=== PATIENT | female | born 1980 | race Caucasian/White ===

== ENCOUNTER 2016-12-11 03:02 | Inpatient (IN) ==
[2016-12-11 03:17] LABS: URINE SOURCE VOIDED
[2016-12-11 03:31] LABS: BILIRUBIN URINE NEGATIVE (NEGATIVE); BLOOD URINE 4+ (NEGATIVE); CLARITY SL. CLOUDY (CLEAR); COLOR YELLOW; GLUCOSE URINE NEGATIVE (NEGATIVE); LEUKOCYTES URINE 2+ (NEGATIVE); NITRITE URINE NEGATIVE (NEGATIVE); PROTEIN URINE NEGATIVE (NEGATIVE); SP GRAVITY URINE 1.005; UROBILINOGEN URINE NORMAL
[2016-12-11] MEDS ORDERED: PEPCID IV PRN (03:37)
[2016-12-11] MEDS ORDERED: AMPICILLIN 2 GM/NS 2 GM/100 ML IVPB IV ONE (03:37)
[2016-12-11] MEDS ORDERED: KEFZOL 1 GM/D5W 1 GM/50 ML IVPB IV PRN (03:37)
[2016-12-11] MEDS ORDERED: PEPCID PO PRN (03:37)
[2016-12-11] MEDS ORDERED: ZOFRAN IV PRN (03:37)
[2016-12-11] MEDS ORDERED: STADOL IV PRN (03:37)
[2016-12-11] MEDS ORDERED: TYLENOL PO PRN (03:37)
[2016-12-11] MEDS ORDERED: PITOCIN 30 UNITS/LR 30 UNITS/500 ML IV.SOLN IV SCH (03:37)
[2016-12-11] MEDS ORDERED: LR 1,000 ML IV SCH (03:37)
[2016-12-11] MEDS ORDERED: SODIUM CHLORIDE 0.9% INJ SCH (03:45)
[2016-12-11] MEDS ORDERED: MINERAL OIL TOP PRN (03:52)
[2016-12-11] MEDS ORDERED: XYLOCAINE-MPF 1% INJ PRN ×2 (03:52→08:47)
[2016-12-11 03:55] LABS: UR AMPHETAMINES QUAL NONE DETECTED (NONE DETECT); UR BARBITUATES QUAL NONE DETECTED (NONE DETECT); UR BENZODIAZEPIN QUAL NONE DETECTED (NONE DETECT); UR CANNABINOIDS QUAL NONE DETECTED (NONE DETECT); UR COCAINE QUAL NONE DETECTED (NONE DETECT); UR MDMA QUAL NONE DETECTED (NONE DETECT); UR METHADONE QUAL NONE DETECTED (NONE DETECT); UR METHAMPHETAMINE QUAL NONE DETECTED (NONE DETECT); UR OPIATES QUAL NONE DETECTED (NONE DETECT); UR OXYCODONE QUAL NONE DETECTED (NONE DETECT); UR PCP QUAL NONE DETECTED (NONE DETECT); UR TCA QUAL NONE DETECTED (NONE DETECT)
[2016-12-11 04:20] LABS: MANUAL DIFF NEEDED? NO
[2016-12-11 04:24] LABS: BASO% 0.3 % (0.0-0.8); EOS# 0.17 X1000 (0.0-0.7); EOS% 1.3 % (0.0-10.0); HEMATOCRIT 38.1 % (37.0-47.0); HEMOGLOBIN 12.6 g/dL (12.0-16.0); IMM GRAN# 0.08 X1000 (0.0-0.04); IMM GRAN% 0.6 % (0.0-0.5); LYMPH% 21.4 % (20.5-51.1); MCH 28.1 PG (27-31); MCHC 33.1 g/dL (33-37); MONO# 1.26 X1000 (0.11-0.59); MONO% 9.3 % (1.7-9.3); MPV 11.3 FL (7.4-10.4); NEUT% 67.1 % (42.2-75.2); PLT 272 X1000 (130-400); RBC 4.48 XMIL (4.2-5.4)
[2016-12-11] MEDS ORDERED: NAROPIN 0.2% EPIDURAL SCH (04:45)
[2016-12-11] MEDS ORDERED: FENTANYL SCH (04:45)
[2016-12-11] MEDS ORDERED: MARCAINE 0.25% PF INJ ONE (04:53)
[2016-12-11] MEDS ORDERED: MARCAINE 0.25% PF ONE (04:54)
[2016-12-11] MEDS ORDERED: FENTANYL-BUPIV-NS 2 MCG-0.1% 200 ML ONE (05:25)
[2016-12-11] MEDS ORDERED: FENTANYL-BUPIV-NS 2 MCG-0.1% 200 ML EPIDURAL SCH (05:30)
[2016-12-11] MEDS ORDERED: NEO-SYNEPHRINE ONE (05:41)
[2016-12-11] MEDS ORDERED: NEO-SYNEPHRINE IV ONE (05:41)
[2016-12-11] MEDS ORDERED: METHERGINE ONE (07:25)
[2016-12-11] MEDS ORDERED: METHERGINE IM ONE (07:33)
[2016-12-11] MEDS ORDERED: AMPICILLIN 1 GM/NS 1 GM/50 ML IVPB IV SCH (07:38)
[2016-12-11] MEDS ORDERED: PITOCIN IM PRN (08:47)
[2016-12-11] MEDS ORDERED: HYDROXYZINE PO PRN (08:47)
[2016-12-11] MEDS ORDERED: BOOSTRIX VACCINE IM ONE (08:47)
[2016-12-11] MEDS ORDERED: MINERAL OIL PO PRN (08:47)
[2016-12-11] MEDS ORDERED: BENADRYL PO PRN (08:47)
[2016-12-11] MEDS ORDERED: BENADRYL IV PRN (08:47)
[2016-12-11] MEDS ORDERED: HYDROXYZINE IM PRN (08:47)
[2016-12-11] MEDS ORDERED: PERI MEDS (DERMOPLAST/NUPERCAINAL/TUCKS) MISC PRN (08:47)
[2016-12-11] MEDS ORDERED: PITOCIN 30 UNITS/LR 30 UNITS/500 ML IV.SOLN IV ONE (08:47)
[2016-12-11] MEDS ORDERED: PITOCIN 20 UNITS/LR 20 UNITS/1,000 ML IV.SOLN IV SCH (08:47)
[2016-12-11] MEDS ORDERED: CYTOTEC PO PRN (08:47)
[2016-12-11] MEDS ORDERED: NORCO-5 PO PRN (08:47)
[2016-12-11] MEDS ORDERED: AMBIEN PO PRN (08:47)
[2016-12-11] MEDS ORDERED: M-M-R II VACCINE SUBQ ONE (08:47)
[2016-12-11] MEDS ORDERED: NORCO-10 PO PRN (08:47)
[2016-12-11] MEDS ORDERED: ZOFRAN IV ONE (09:17)
[2016-12-11] MEDS: PRECARE PO SCH (09:31)
[2016-12-11] MEDS: MOTRIN PO PRN (14:01)
--- NOTE | 2016-12-11 15:43 | OPERATIVE NOTE ---
PROCEDURE DATE : 12/11/2016 PREDELIVERY DIAGNOSES: 1. at 38-1/2. 2. Spontaneous onset of labor. 3. Advanced maternal age. 4. Group B streptococcus carrier status positive. POSTDELIVERY DIAGNOSES: 1. at 38-1/2. 2. Spontaneous onset of labor. 3. Advanced maternal age. 4. Group B streptococcus carrier status positive. 5. Nuchal cord x1 without compression. PROCEDURE PERFORMED: Vaginal delivery. SURGEON: Dr. Moon ANESTHESIA: Spinal. FINDINGS: Viable female infant at 8 pounds 2 ounces. No lacerations or repairable tears. Placenta was spontaneous, intact. Cord was 3 vessels. All counts were correct. INDICATION: Please refer to Ms. Lee' records. She went into active labor this morning. She presented to the hospital, received group B beta strep prophylaxis and received epidural anesthesia. She made steady progression, spontaneously rupturing after 4 hours after presentation. She quickly became complete, began pushing, she began to crown, at which point the bed was broken down, and she was prepped and draped. With continued pushing, she delivered a viable female , occiput anterior, over an intact perineum. Once the head delivered, shoulders delivered with moderate difficulty. The infant was placed on mother's abdomen. The cord was doubly clamped and cut, and care of infant was taken over by Nursery personnel. Cord blood was obtained, and 3 vessels were noted. Then gentle traction on the cord resulted in delivery of an intact placenta after approximately 5 minutes. It was inspected and discarded. The vagina and perineum were inspected. Mild skin break midline. No clots or foreign material in the vagina. Estimated blood loss was 100 mL. All counts were correct. cc: MD Lucas Garcia MD
[2016-12-11] MEDS: PERICOLACE PO SCH (20:19)
[2016-12-12 05:59] LABS: MANUAL DIFF NEEDED? NO
[2016-12-12 06:17] LABS: BASO% 0.4 % (0.0-0.8); EOS# 0.29 X1000 (0.0-0.7); HEMATOCRIT 30.2 % (37.0-47.0); HEMOGLOBIN 9.8 g/dL (12.0-16.0); IMM GRAN# 0.07 X1000 (0.0-0.04); IMM GRAN% 0.5 % (0.0-0.5); LYMPH# 3.17 X1000 (1.2-3.4); LYMPH% 21.7 % (20.5-51.1); MCH 27.9 PG (27-31); MCHC 32.5 g/dL (33-37); MONO# 1.28 X1000 (0.11-0.59); MONO% 8.8 % (1.7-9.3); MPV 11.5 FL (7.4-10.4); NEUT% 66.6 % (42.2-75.2); PLT 216 X1000 (130-400); RBC 3.51 XMIL (4.2-5.4)
[2016-12-12] MEDS: MOTRIN PO PRN ×2 (08:05→20:03)
[2016-12-12] MEDS: PRECARE PO SCH (08:05)
[2016-12-12] MEDS: PERICOLACE PO SCH (20:01)
--- NOTE | 2016-12-12 20:44 | PROGRESS NOTE ---
DATE: 12/12/2016 SUBJECTIVE: She is day 1. She is without complaints. She is ambulating. She is tolerating p.o. She is voiding. PHYSICAL EXAMINATION: Vital signs: Stable. She is afebrile. General: Within normal limits. Abdomen: Slightly distended. : Uterus is firm. Extremities: +2 lower extremity edema. LABORATORIES: Hemoglobin 9.8, down from 12.6. No continued bleeding at this point and patient without weakness or dizziness, ambulating. So will continue present management. Expect discharge in the morning. cc: MD Lucas Garcia MD
[2016-12-13 08:53] VITALS: BP 97/54
--- NOTE | 2016-12-14 05:16 | DISCHARGE SUMMARY ---
ADMISSION DATE: 12/11/2016 DISCHARGE DATE: 12/13/2016 ADMIT DIAGNOSES: 1. Intrauterine at term. 2. Active labor. 3. Advanced maternal age, group B streptococcus carrier status positive. DISCHARGE DIAGNOSES: 1. Intrauterine at term. 2. Active labor. 3. Advanced maternal age, group B streptococcus carrier status positive. CONDITION: Stable. DIET: As tolerated. ACTIVITY: Routine instructions. MEDICATIONS: Purdy 5 for pain, Motrin 800. She is to continue vitamins and iron. FOLLOW UP: She is to follow up in the office in 6 weeks. Please refer to Ms. Lee' records, delivery note, and progress notes. She has done well afterwards. Currently, is day 2. Ambulating, tolerating p.o. Has bonded well with her baby and is desiring discharge. PHYSICAL EXAMINATION: Vital Signs: Stable. She is afebrile. Pertinent exam: Her abdomen is distended, but uterus is firm and nontender. Extremities: No cyanosis, clubbing, edema in her extremities. ASSESSMENT AND PLAN: As above. cc: MD Lucas Garcia MD
== END 2016-12-13 11:00 | disposition home or self-care (01) ==
LOC: P.OPLD 03:02 → P.LD 03:05 → P.WC 12:00
PROVIDERS: ADMIT Obstetrics & Gynecology; ATTEND Obstetrics & Gynecology